=== PATIENT | male | born 1950 | race Caucasian/White ===

== ENCOUNTER 2018-04-24 12:01 | Day surgery (SDC) | payer BC ==
[2018-04-24] MEDS ORDERED: PROPOFOL 10 MG/ML VIAL IV ONE (12:02)
[2018-04-24] MEDS ORDERED: LIDOCAINE 2% MDV (20MG/ML) 20ML VIAL IV ONE (12:02)
--- NOTE | 2018-04-26 11:50 | Operative Note ---
DATE OF SURGERY: 04/24/2018 OPERATION: COLONOSCOPY to the cecum with cold snare polypectomy x5 and cold biopsy forceps polypectomy x1. INDICATION: Prior history of adenomatous polyps. His last examination was in 2009 completed [address] my associate [address] Carrasco who removed multiple polyps at that time. ANESTHESIA: Intravenous sedation was administered by the department of anesthesiology and included Diprivan titrated to effect. PROCEDURE: Following informed consent from this alert individual including a discussion of the risks and benefits of the procedure and an opportunity for the patient to ask questions, the patient was in the left lateral decubitus position. A digital rectal examination was performed. No abnormalities were noted. Following this, the Olympus FLH328 video colonoscope was inserted into the rectum without resistance. The rectal mucosa had a normal appearance with normal folds and distensibility. The colonoscope was advanced up through the bowel to the level of the cecum without much difficulty. Throughout the bowel the mucosa appeared normal, the folds were normal, and the bowel was fairly well distensible. The cecum was defined by noting the appendiceal orifice and ileocecal valve. The colon preparation was good. Retroflexion in the cecum was accomplished and failed to demonstrate changes. From the base of the cecum, the colonoscope was then withdrawn. There was a total of 6 polyps removed from the bowel upon withdrawal. Two were in the ascending colon measuring 4-5 mm in size and these were removed with cold snare polypectomy. There was 1 polyp removed from the transverse colon measuring 6 mm in size and this too was removed with cold snare polypectomy. There were 2 additional polyps in the descending colon measuring 4 mm in size removed with cold snare. There was 1 diminutive polyp in the distal sigmoid colon removed with biopsy forceps. No other mucosal changes were appreciated throughout the colon. Retroflexion in the rectum did reveal small internal hemorrhoids. The endoscope was straightened and removed. The patient tolerated the procedure well and was returned to the recovery area in stable condition. IMPRESSION: 1. There were a total of 6 polyps removed from the colon with 2 in the ascending colon, 1 in the transverse colon, and 2 in the descending colon measuring between 4-5 mm in size removed with cold snare polypectomy. There was a diminutive 3 mm polyp noted in the sigmoid colon removed with biopsy forceps. 2. Small internal hemorrhoids. RECOMMENDATIONS: Further recommendations will be forthcoming pending results of pathology obtained today. The patient most likely will be recommended to have repeat colonoscopy in 3 years' time again pending biopsies. Followup will also be with Dr. Galarza. As always, thank you for allowing me to participate in the care of your patient. CC: NARESH GALARZA MD, FACP [facility]
== END 2018-04-24 14:10 | disposition home or self-care (01) ==
LOC: HOP 12:01
PROVIDERS: ATTEND Internal Medicine Gastroenterology
DX: Z12.11 Encounter for screening for malignant neoplasm of colon (principal); Z86.010 Personal history of colon polyps; D12.2 Benign neoplasm of ascending colon; D12.3 Benign neoplasm of transverse colon; D12.4 Benign neoplasm of descending colon; D12.5 Benign neoplasm of sigmoid colon; K64.8 Other hemorrhoids; E11.9 Type 2 diabetes mellitus without complications; M10.9 Gout, unspecified; I10 Essential (primary) hypertension; E78.00 Pure hypercholesterolemia, unspecified